=== PATIENT | male | born 1960 | race Caucasian/White ===

== ENCOUNTER 2024-12-07 13:00 | Inpatient (IN) ==
[2024-12-07] MEDS ORDERED: PROVENTIL NEB TX 0.083% 2.5MG/ 3ML ONE (13:08)
[2024-12-07 13:12] LABS: ABG BASE EXCESS 2.4 mmol/L (-2.0-2.0); ABG HCO3 27.2 mmol/L (22-26); ABG OXYGEN SATURATION 95.0 % (90-100); ABG PCO2 42.0 mmHg (35.0-45.0); ABG PH 7.420 (7.35-7.45); ABG PO2 73.0 mmHg (80.0-100.0)
[2024-12-07 13:15] LABS: MEAN PLATELET VOLUME 6.7 fL (7.4-11.0); RED CELL DISTRIBUTION WIDTH 14.0 % (11.6-16.5)
--- NOTE | 2024-12-07 13:20 | EKG ---
Test Reason : short of breath Blood Pressure : */* mmHG Vent. Rate : 89 BPM Atrial Rate : 89 BPM P-R Int : 156 ms QRS Dur : 128 ms QT Int : 380 ms P-R-T Axes : 100 48 5 degrees QTc Int : 462 ms Normal sinus rhythm Right bundle branch block Inferior infarct , age undetermined Abnormal ECG No previous ECGs available Confirmed by Brandon Rudolph MD ([id number]) on 12/08/2024 5:01:11 AM Referred By: Confirmed By: Brandon Rudolph MD
[2024-12-07] MEDS: DUONEB 0.5 MG/3 MG (3 mL) NEB ONE (13:27)
[2024-12-07 13:29] LABS: COR CA(FOR HYPOALB) 9.9 mg/dL (8.5-10.1); COR NA(FOR HYPERGLY) 133 mmol/L (136-145); CREATININE 0.95 mg/dL (0.70-1.30); eGFR NON BLACK RACES > 60 (>60)
--- NOTE | 2024-12-07 13:42 | RAD ---
EXAMINATION: CHEST, 1 VIEW HISTORY: short of breath; . COMPARISON STUDY: None. TECHNIQUE: Two views FINDINGS: Films are underpenetrated. Cardiomegaly. Perihilar infiltrates may represent CHF. No pneumothorax. Hilar and mediastinal structures are unremarkable. Tortuous aorta. EKG leads and oxygen tubing project over the chest. IMPRESSION: Perihilar infiltrates which may represent CHF. Follow-up recommended. THIS IS AN ELECTRONICALLY VERIFIED FINAL REPORT 12/07/2024 1:39 PM - Electronically signed by Joce Chan MD
--- NOTE | 2024-12-07 14:28 | DR.SOBA ---
HPI Time Seen Time Seen by Provider: 12/07/24 13:16 Primary Care Physician Primary Care Physician: Hai HPI Comment HPI Comment: Patient with history of CHF, COPD and recently diagnosed pneumonia as an outpatient was prescribed a Z-Sami and before he took his first dose this morning the found him lethargic and hypotensive. On arrival his oxygen saturation was at 88% but improved quickly thereafter. Patient had 2-3+ pitting edema bilateral lower extremities. Denies fever. Complaints Chief Complaint:: Patient wheeled into the Trauma room with the CC of Shortness of Breath, and Cough that started on last wednesday12/01/24. Patients stated that the patient fell four times over the last week and hurt both of his knees. On arrival the patient was on June Mask @3Lpm and the patient O2 was noted to be 88%. Patient is noted to have 3+ pitting edema to the bilateral lower extrimities. Self Treatment fo Chief Complaint: N/A COVID-19 Coronavirus risk:travel/contact w/high risk person: No Has patient experienced Coronavirus symptoms: Yes Coronavirus symptoms experienced: Coughing and Shortness of Breath Source History Provided: Patient and Significant Other Mode of Arrival Mode of Arrival: Wheelchair Timing Onset of Chief Complaint: 12/01/24 PMH PMH Past Medical History: Yes Past Medical History: Anxiety, CHF, COPD, Diabetes, Dyslipidemia, Hypertension and Cancer Past Surgical History: Yes Surgical History: Ortho Surgery Past Surgical History Comment: Eye Sx, Left Arm ortho sx, Right shoulder. Family History History of Family Medical Conditions: Yes Family Medical History: Diabetes Mellitus and Hypertension Social History Does any household member use tobacco: Yes Alcohol Use: None Do you use any recreational Drugs:: No Lives With: Spouse Lives Where: Home Travel Risk Coronavirus risk:travel/contact w/high risk person: No Has patient experienced Coronavirus symptoms: Yes Coronavirus symptoms experienced: Coughing and Shortness of Breath Infectious screening In the last 2 months have you had wt loss of >10#?: NO Have you had fever, night sweats or hemotysis?: No Have you traveled outside the country in the last 6 months?: No Isolation: Standard ROS Review of Systems Constitutional: No Symptoms Reported and Fatigue; negative Fever Eyes: No Symptoms Reported ENTM: No Symptoms Reported Respiratoy: See HPI, Short of Breath and Wheezing Cardiovascular: See HPI and Edema (At baseline); negative Chest Pain, Palpitations or Syncope Gastrointestinal/Abdominal: No Symptoms Reported Genitourinary: No Symptoms Reported Neurological: No Symptoms Reported; negative Headache, Numbness, Paresthesia, Seizure, Tingling, Weakness, Dizziness or Speech Problem Musculoskeletal: No Symptoms Reported Integumentary: No Symptoms Reported Hematologic/Lymphatic: No Symptoms Reported Endocrine: No Symptoms Reported Psychiatric: No Symptoms Reported All Other Systems: Reviewed and Negative PE Vital Signs Vitals: Vital Signs Temperature 98.8 F Pulse Rate 85 Pulse Rate 90 Respiratory Rate 26 Blood Pressure 105/62 O2 Sat by Pulse Oximetry 95 O2 Sat by Pulse Oximetry 88 General Limitations: No Limitations General Appearance: Alert, In No Apparent Distress and Lethargic Head Head Exam: Normal Inspection, Atraumatic and Normocephalic Eyes Eye exam: Normal Appearance ENT ENT Exam: Normal Exam Neck Neck Exam: Normal Inspection Chest Chest Inspection: Normal Inspection Respiratory Respiratory Exam: Other (Diminish on right middle and lower lung. Wheezing bilaterally) Cardiovascular Cardiovascular Exam: Regular Rate and Normal Rhythm Abdominal Exam Abdominal Exam: Normal Inspection, Normal Bowel Sounds and Soft Extremities Extremities Exam: Normal Inspection Back Back Exam: Normal Inspection Neurologic Neurological Exam: Alert and Oriented X3 Psychiatric Psychiatric Exam: Normal Affect and Normal Mood Skin Skin Exam: Warm, Dry, Intact and Normal Color COURSE Treatment Treatment: Discussed results of workup with patient and family. Patient improved significantly during stay in ER but still feeling a little fatigue and winded. Consultation Called: 15:13 Consultation Comments: Discussed case with Dr. Harris and he is agreeable to admission ROR Labs Reviewed Laboratory Results Reviewed?: Yes 12/07/24 13:06 12/07/24 13:06 Laboratory: WBC 17.6 X10^3/uL (3.6-10.0) H 12/07/24 13:06 RBC 4.19 X10^6/uL (4.7-6.0) L 12/07/24 13:06 Hgb 12.3 g/dL (13.5-18.0) L 12/07/24 13:06 Hct 36.8 % (42.0-54.0) L 12/07/24 13:06 MCV 88.0 fL (80.0-100.0) 12/07/24 13:06 MCH 29.5 pg (27.0-34.0) 12/07/24 13:06 MCHC 33.5 g/dL (33.0-35.0) 12/07/24 13:06 RDW 14.0 % (11.6-16.5) 12/07/24 13:06 Plt Count 508 X10^3/uL (150.0-450.0) H 12/07/24 13:06 MPV 6.7 fL (7.4-11.0) L 12/07/24 13:06 Neut % (Auto) 75.1 % (42.0-75.0) H 12/07/24 13:06 Lymph % (Auto) 13.5 % (21.0-51.0) L 12/07/24 13:06 Craig % (Auto) 8.8 % (0.0-13.0) 12/07/24 13:06 Eos % (Auto) 2.1 % (0.9-2.9) 12/07/24 13:06 Baso % (Auto) 0.5 % (0.2-1.0) 12/07/24 13:06 Neut # (Auto) 13.2 x10^3/uL (2.2-4.8) H 12/07/24 13:06 Lymph # (Auto) 2.4 X10^3/uL (1.3-2.9) 12/07/24 13:06 [place] # (Auto) 1.6 x10^3/uL (0.3-0.8) H 12/07/24 13:06 Eos # (Auto) 0.4 x10^3/uL (0.0-0.2) H 12/07/24 13:06 Baso # (Auto) 0.1 X10^3/uL (0.0-0.1) 12/07/24 13:06 Absolute Nucleated RBC 0.0 /100WBC 12/07/24 13:06 Sample Site Lbra 12/07/24 13:11 ABG pH 7.420 (7.35-7.45) 12/07/24 13:11 ABG pCO2 42.0 mmHg (35.0-45.0) 12/07/24 13:11 ABG pO2 73.0 mmHg (80.0-100.0) L 12/07/24 13:11 ABG HCO3 27.2 mmol/L (22-26) H 12/07/24 13:11 ABG O2 Saturation 95.0 % (90-100) 12/07/24 13:11 ABG Base Excess 2.4 mmol/L (-2.0-2.0) H 12/07/24 13:11 Pavel Test N/a 12/07/24 13:11 A-a Gradient 160.0 mmHg 12/07/24 13:11 FiO2 40.0 12/07/24 13:11 Blood Gas Comments Vargas well ms/eb 12/07/24 13:11 Sodium 132 mmol/L (136-145) L 12/07/24 13:06 Corrected Sodium 133 mmol/L (136-145) L 12/07/24 13:06 Potassium 4.2 mmol/L (3.5-5.1) 12/07/24 13:06 Chloride 95 mmol/L (98-107) L 12/07/24 13:06 Carbon Dioxide 27.9 mmol/L (21-32) 12/07/24 13:06 BUN 13 mg/dL (7-18) 12/07/24 13:06 Creatinine 0.95 mg/dL (0.70-1.30) 12/07/24 13:06 Est GFR (MDRD) Af Amer > 60 (>60) 12/07/24 13:06 Est GFR (MDRD) Non-Af > 60 (>60) 12/07/24 13:06 Glucose 124 mg/dL (65-99) H 12/07/24 13:06 Lactic Acid 1.0 mmol/L (0.4-2.0) 12/07/24 13:32 Calcium 8.8 mg/dL (8.5-10.1) 12/07/24 13:06 Corrected Calcium 9.9 mg/dL (8.5-10.1) 12/07/24 13:06 Total Bilirubin 0.30 mg/dL (0.2-1.0) 12/07/24 13:06 AST 8 Units/L (15-37) L 12/07/24 13:06 ALT 13 Units/L (12-78) 12/07/24 13:06 Alkaline Phosphatase 54 Units/L (46-116) 12/07/24 13:06 Troponin I High Sens 4.4 ng/L (4.0-60.0) 12/07/24 13:06 B-Natriuretic Peptide 51.7 pg/mL (0-79) 12/07/24 13:06 Total Protein 7.9 g/dL (6.4-8.2) 12/07/24 13:06 Albumin 2.6 g/dL (3.4-5.0) L 12/07/24 13:06 Globulin 5.3 g/dL (2.5-4.5) H 12/07/24 13:06 Albumin/Globulin Ratio 0.5 Ratio (1.1-2.1) L 12/07/24 13:06 Other Results Comments: See CT results. XRAY X-ray Results: See radiology report for chest x-ray EKG Rate: 89 Sloan: Normal Rhythm: NSR Block: RBBB Hypertrophy: None ST: Normal Opioid Opioid Risk Tool Age (Immanuel box if 16-45): No History of Preadolescent Sexual Abuse: No Total: 0 Total Score Risk Category: Low Risk Copyright: Tellez predicting aberrant behaviors Discharge Plan Diagnosis Discharge Problem: Acute hypotension, Pneumonia, CHF (congestive heart failure), COPD (chronic obstructive pulmonary disease) Discharge Plan Patient Disposition: 09 ADMITTED INPATIENT Condition: Stable Prescriptions: No Action carvedilol 25 mg tablet 25 mg PO BID Patient Comments: [NO ORIGINAL SIG] alprazolam 1 mg tablet 1 mg PO TID Patient Comments: [NO ORIGINAL SIG] hydrocodone-acetaminophen 10-325 mg tablet 1 tab PO TID PRN Patient Comments: [NO ORIGINAL SIG] nifedipine 60 mg tablet extended release 24hr 60 mg PO BID Patient Comments: [NO ORIGINAL SIG] fluticasone propion-salmeterol [Advair HFA] 230-21 mcg/actuation HFA aerosol inhaler 1 puff INHALATION BID Patient Comments: [NO ORIGINAL SIG] brimonidine-timolol [Combigan] 0.2-0.5 % drops 1 drp OPHTHALMIC (EYE) Q12H Patient Comments: [NO ORIGINAL SIG] icosapent ethyl [Vascepa] 1 gram capsule 1 g PO BID Patient Comments: [NO ORIGINAL SIG] Entresto 49-51 mg tablet 1 tab PO BID Patient Comments: [NO ORIGINAL SIG] latanoprost 0.005 % drops 1 drp OPHTHALMIC (EYE) QPM Patient Comments: [NO ORIGINAL SIG] Rx Instructions: both eyes clonidine HCl 0.1 mg tablet 0.1 mg PO TID Patient Comments: [NO ORIGINAL SIG] metformin 850 mg Tablet 850 mg PO BID azithromycin 250 mg Tablet 250 mg PO QDAY Rx Instructions: start on day 2 of therapy cephalexin 500 mg Capsule 500 mg PO TID aspirin 81 mg Tablet 81 mg PO QDAY Health Concerns: Post Hospitalization: new medications and changes needed to prevent readmission or further decline. Pt educated and given instructions on all concerns. Plan of Treatment: Continue with present treatment and follow up plan. Pt is to keep follow up appointment as instructed and take medications as ordered. Orders to Discharge Patient Discharge Orders: Transfer (Routine); Ordered 12/07/24 Ordered By: Nii Patel Follow ups/Referrals Follow ups/Referrals: [facility],None [Primary Care Provider] - 3 days Instructions Stand Alone Forms: Find Help Web Site, Post Hospital Follow Up Care Print Language: ESTONIAN
--- NOTE | 2024-12-07 14:54 | CT ---
EXAMINATION: CHEST W/O CON HISTORY: SOB; . COMPARISON: Chest x-ray 12/07/2024 TECHNIQUE: Routine axial imaging of the chest was performed. Lack of IV contrast limits diagnostic sensitivity. The above CT scan was done with automated exposure control and the mA and kV was adjusted to obtain quality images according to patient size. FINDINGS: Lungs: Elevated left hemidiaphragm. Dense alveolar opacity with air bronchograms in the left lower lobe and lingula likely representing pneumonia. Alveolar infiltrate medially in the right lower lobe suggesting pneumonia. Bronchial thickening is noted. Minimal central bronchiectasis. No ground-glass opacities, suspicious pulmonary nodules Central Airways: No obstructing endobronchial lesions Pleura: No pleural effusion or pneumothorax Thoracic Aorta: Ectasia. Atherosclerotic calcification. Main Pulmonary Trunk: Normal diameter Lymph Nodes: No pathologic hilar, axillary or mediastinal adenopathy Heart/Pericardium: Cardiomegaly. No significant pericardial effusion. Three-vessel coronary artery disease Liver: No acute findings. Cyst in the left lobe of the liver. GB/Biliary: Distended gallbladder. No gallstones or dilated ducts. No wall thickening Spleen: Normal size and density Pancreas: No acute findings as visualized Adrenal Glands: No mass Kidneys no hydronephrosis. Abdominal Aorta: Tapers normally. Atherosclerotic calcification Retroperitoneum: No pathologically enlarged lymph nodes Bowel/Peritoneal Cavity: No acute findings as visualized Osseous Structures: Degenerative changes in the thoracolumbar spine. No acute findings. Other: None IMPRESSION: Dense alveolar infiltrate in the left lower lobe and lingula with air bronchograms. Alveolar infiltrate medially in the right lower lobe. Findings suggest pneumonia. Follow-up to resolution recommended. Central bronchiectasis with bronchial thickening. Distended gallbladder. No gallstones wall thickening or dilated duct The above CT scan was done with automated exposure control and the mA and kV was adjusted to obtain quality images according to patient size THIS IS AN ELECTRONICALLY VERIFIED FINAL REPORT 12/07/2024 2:51 PM - Electronically signed by Joce Chan MD
[2024-12-07] MEDS ORDERED: ULTRAM PO PRN (15:42)
[2024-12-07] MEDS ORDERED: TYLENOL 325 MG TAB PO PRN (15:42)
[2024-12-07] MEDS ORDERED: NovoLIN R (or HumuLIN R) SUBCUT PRN (15:42)
[2024-12-07] MEDS ORDERED: CONSULT PHARMACY - POTASSIUM & MAGNESIUM XX SCH (16:00)
[2024-12-07] MEDS: COMBIGAN EYE DROPS OP SCH ×2 (16:14→22:00)
[2024-12-07 16:36] VITALS: BMI 30.9
[2024-12-07 17:52] LABS: BLOOD/HEMOGLOBIN,URINE NEGATIVE (NEGATIVE); LEUKOCYTE ESTERASE ,URINE NEGATIVE (NEGATIVE); NITRITES,URINE NEGATIVE (NEGATIVE)
[2024-12-07 17:53] LABS: APPEARANCE,URINE CLEAR (CLEAR); SQUAMOUS EPITHELIAL CELL,UR RARE /HPF (NEGATIVE)
[2024-12-07] MEDS ORDERED: PHARMACY CONSULT XX SCH (18:00)
[2024-12-07] MEDS ORDERED: PULMICORT NEB TX 0.5 MG NEB ONE (19:59)
[2024-12-07] MEDS ORDERED: DUONEB 0.5 MG/3 MG (3 mL) NEB ONE (19:59)
[2024-12-07] MEDS: PULMICORT NEB TX 0.5 MG NEB SCH (20:09)
[2024-12-07] MEDS: DUONEB 0.5 MG/3 MG (3 mL) NEB SCH (20:09)
[2024-12-07] MEDS: SNACK - Diabetic Appropriate PO SCH (20:35)
[2024-12-07] MEDS: LOVENOX INJ 40 MG SYR SC SCH (20:36)
[2024-12-07] MEDS: VIBRAMYCIN 100 MG in D5W 250 ML IV 250 ML IV SCH (20:36)
[2024-12-07] MEDS: NS 250 ML IV 250 ML IV PRN (20:36)
[2024-12-07] MEDS: NORCO 5/325 MG TAB PO PRN (20:37)
[2024-12-07] MEDS: XALATAN OP SCH (20:40)
[2024-12-07] MEDS ORDERED: [UNRECOGNIZED DRUG - OTHER] IN SCH (21:00)
[2024-12-07] MEDS: ALPRAZOLAM ODT PO PRN (22:09)
[2024-12-08 06:18] LABS: MEAN PLATELET VOLUME 6.9 fL (7.4-11.0); RED CELL DISTRIBUTION WIDTH 14.1 % (11.6-16.5)
[2024-12-08 06:36] LABS: COR CA(FOR HYPOALB) 10.2 mg/dL (8.5-10.1); CREATININE 0.83 mg/dL (0.70-1.30); eGFR NON BLACK RACES > 60 (>60)
--- NOTE | 2024-12-08 08:02 | RAD ---
EXAMINATION: CHEST, 1 VIEW HISTORY: SOB ; CHF, COPD, DM, HTN SX: ORTHO, EYE SX . COMPARISON STUDY: Chest x-ray 12/07/2024. CT chest 12/07/2024 TECHNIQUE: One view FINDINGS: Cardiomegaly is present. Minimal decrease in bibasilar infiltrates. Follow-up recommended. No pneumothorax, new infiltrate or other change noted. EKG leads are present. IMPRESSION: Minimal decrease in bilateral lower lobe infiltrates. Follow-up recommended THIS IS AN ELECTRONICALLY VERIFIED FINAL REPORT 12/08/2024 7:59 AM - Electronically signed by Joce Chan MD
[2024-12-08] MEDS: ASPIRIN EC 81 MG PO SCH (09:25)
[2024-12-08] MEDS: DECADRON INJ IVP SCH (09:25)
[2024-12-08] MEDS: NICOTINE PATCH TD SCH (09:26)
[2024-12-08] MEDS: CHECK PATCH XX SCH (09:26)
--- NOTE | 2024-12-08 10:10 | DR.H&P ---
H&P History & Physical for Day of: H&P Date: 12/08/24 Chief Complaint Chief Complaint: Weakness History of Present Illness History of Present Illness: Patient brought from home to the ER due to worsening shortness of breath and weakness. Found to have a left lower lobe pneumonia and meeting sepsis criteria. He is chronically on 2 L O2 at home but had to bump it up to 3-4 L. He is feeling better this morning compared to the prior days. Still with a productive cough, fatigue, and soft blood pressure. Heart rate still slightly elevated and O2 variable on 3L. Daughter at bedside. ROS: 12 point ROS otherwise negative. PE: Well-developed, obese male in no acute distress. Sitting at the bedside chair. Currently eating breakfast. Hearing intact conversation, head NCAT, EOMI. Heart regular rate and rhythm. Belly is soft nontender with bowel sounds present, it is protuberant. Lung sounds are diminished but clear except in the left lower lobe. There are crackles and hollow areas. Mood and affect are appropriate. No edema of his extremities at this time. Past Medical History Past Medical History: Anxiety, CHF, COPD, Diabetes, Dyslipidemia, Hypertension and Cancer Past Surgical History Surgical History: Ortho Surgery Family History Family Medical History: Diabetes Mellitus, [place], Coronary Artery Disease and Hypertension Social History Does patient currently use any type of tobacco product: Yes Type of Tobacco Use: Cigarettes Does any household member use tobacco: No Alcohol Use: None Drug Use: None Medications Home Medications: Home Medications Medication Instructions Recorded Confirmed Type alprazolam 1 mg tablet 1 mg PO TID 12/07/24 5 History aspirin 81 mg tablet 81 mg PO QDAY 12/07/2412/07 History azithromycin 250 mg tablet 250 mg PO QDAY 12/07/24 History brimonidine 0.2 %-timolol 0.5 % 1 drp ophthalmic (eye) Q12H 12/07/24 12/07/24 History eye drops (Combigan) carvedilol 25 mg tablet 25 mg PO BID 12/07/24 History cephalexin 500 mg capsule 500 mg PO TID 12/07/2412/07 History clonidine HCl 0.1 mg tablet 0.1 mg PO TID 12/07/24 History fluticasone propionate 230 1 puff inhalation BID 12/0712/07/24 History mcg-salmeterol 21 mcg/actuation HFA inhaler (Advair HFA) hydrocodone 10 mg-acetaminophen 1 tab PO TID PRN 12/0712/07/24 History 325 mg tablet icosapent ethyl 1 gram capsule 1 g PO BID 12/07/24 History (Vascepa) latanoprost 0.005 % eye drops 1 drp ophthalmic (eye) Q PM 12/07/24 12/07/24 History metformin 850 mg tablet 850 mg PO BID 12/07/2412/07 History nifedipine 60 mg tablet,extended 60 mg PO BID 12/07/24 12/07/24 History release 24 hr sacubitril 49 mg-valsartan 51 mg 1 tab PO BID 12/07/24 12/07/24 History tablet (Entresto) Allergies Allergies Allergy/AdvReac Type Severity Reaction Status Date / Time clindamycin AdvReac Mild Verified 12/07/24 13:12 Labs 12/08/24 05:13 12/08/24 05:13 Labs: Laboratory WBC 15.6 X10^3/uL (3.6-10.0) H 12/08/24 05:13 RBC 3.89 X10^6/uL (4.7-6.0) L 12/08/24 05:13 Hgb 11.5 g/dL (13.5-18.0) L 12/08/24 05:13 Hct 34.2 % (42.0-54.0) L 12/08/24 05:13 MCV 87.9 fL (80.0-100.0) 12/08/24 05:13 MCH 29.7 pg (27.0-34.0) 12/08/24 05:13 MCHC 33.8 g/dL (33.0-35.0) 12/08/24 05:13 RDW 14.1 % (11.6-16.5) 12/08/24 05:13 Plt Count 495 X10^3/uL (150.0-450.0) H 12/08/24 05:13 MPV 6.9 fL (7.4-11.0) L 12/08/24 05:13 Neut % (Auto) 76.5 % (42.0-75.0) H 12/08/24 05:13 Lymph % (Auto) 12.2 % (21.0-51.0) L 12/08/24 05:13 [place] % (Auto) 8.5 % (0.0-13.0) 12/08/24 05:13 Eos % (Auto) 2.3 % (0.9-2.9) 12/08/24 05:13 Baso % (Auto) 0.5 % (0.2-1.0) 12/08/24 05:13 Neut # (Auto) 11.9 x10^3/uL (2.2-4.8) H 12/08/24 05:13 Lymph # (Auto) 1.9 X10^3/uL (1.3-2.9) 12/08/24 05:13 [place] # (Auto) 1.3 x10^3/uL (0.3-0.8) H 12/08/24 05:13 Eos # (Auto) 0.4 x10^3/uL (0.0-0.2) H 12/08/24 05:13 Baso # (Auto) 0.1 X10^3/uL (0.0-0.1) 12/08/24 05:13 Absolute Nucleated RBC 0.1 /100WBC 12/08/24 05:13 Sample Site Lbra 12/07/24 13:11 ABG pH 7.420 (7.35-7.45) 12/07/24 13:11 ABG pCO2 42.0 mmHg (35.0-45.0) 12/07/24 13:11 ABG pO2 73.0 mmHg (80.0-100.0) L 12/07/24 13:11 ABG HCO3 27.2 mmol/L (22-26) H 12/07/24 13:11 ABG O2 Saturation 95.0 % (90-100) 12/07/24 13:11 ABG Base Excess 2.4 mmol/L (-2.0-2.0) H 12/07/24 13:11 Pavel Test N/a 12/07/24 13:11 A-a Gradient 160.0 mmHg 12/07/24 13:11 FiO2 40.0 12/07/24 13:11 Blood Gas Comments Vargas well ms/eb 12/07/24 13:11 Sodium 135 mmol/L (136-145) L 12/08/24 05:13 Corrected Sodium TNP 12/08/24 05:13 Potassium 4.2 mmol/L (3.5-5.1) 12/08/24 05:13 Chloride 97 mmol/L (98-107) L 12/08/24 05:13 Carbon Dioxide 29.9 mmol/L (21-32) 12/08/24 05:13 BUN 12 mg/dL (7-18) 12/08/24 05:13 Creatinine 0.83 mg/dL (0.70-1.30) 12/08/24 05:13 Est GFR (MDRD) Af Amer > 60 (>60) 12/08/24 05:13 Est GFR (MDRD) Non-Af > 60 (>60) 12/08/24 05:13 Glucose 87 mg/dL (65-99) 12/08/24 05:13 POC Glucose (mg/dL) 91 mg/dL (65-99) 12/08/24 05:12 Lactic Acid 1.0 mmol/L (0.4-2.0) 12/07/24 13:32 Calcium 8.8 mg/dL (8.5-10.1) 12/08/24 05:13 Corrected Calcium 10.2 mg/dL (8.5-10.1) H 12/08/24 05:13 Total Bilirubin 0.30 mg/dL (0.2-1.0) 12/08/24 05:13 AST 10 Units/L (15-37) L 12/08/24 05:13 ALT 14 Units/L (12-78) 12/08/24 05:13 Alkaline Phosphatase 49 Units/L (46-116) 12/08/24 05:13 Troponin I High Sens 4.4 ng/L (4.0-60.0) 12/07/24 13:06 B-Natriuretic Peptide 51.7 pg/mL (0-79) 12/07/24 13:06 Total Protein 7.3 g/dL (6.4-8.2) 12/08/24 05:13 Albumin 2.3 g/dL (3.4-5.0) L 12/08/24 05:13 Globulin 5.0 g/dL (2.5-4.5) H 12/08/24 05:13 Albumin/Globulin Ratio 0.5 Ratio (1.1-2.1) L 12/08/24 05:13 Specimen Type Random urine 12/07/24 17:15 Urine Color Yellow (YELLOW) 12/07/24 17:15 Urine Appearance Clear (CLEAR) 12/07/24 17:15 Urine pH 6.5 (5.0 - 8.0) 12/07/24 17:15 Ur Specific [place] 1.010 (1.000-1.030) 12/07/24 17:15 Urine Protein 1+ (NEGATIVE) 12/07/24 17:15 Urine Glucose (UA) Negative (NEGATIVE) 12/07/24 17:15 Urine Ketones Negative (NEGATIVE) 12/07/24 17:15 Urine Blood Negative (NEGATIVE) 12/07/24 17:15 Urine Nitrite Negative (NEGATIVE) 12/07/24 17:15 Urine Bilirubin Negative (NEGATIVE) 12/07/24 17:15 Urine Urobilinogen Normal (NORMAL) 12/07/24 17:15 Ur Leukocyte Esterase Negative (NEGATIVE) 12/07/24 17:15 Urine RBC None seen /HPF (0-3) 12/07/24 17:15 Urine WBC None seen /HPF (0-5) 12/07/24 17:15 Ur Squamous Epith Cells Rare /HPF (NEGATIVE) 12/07/24 17:15 Urine Bacteria Negative /HPF (NEGATIVE) 12/07/24 17:15 Ur Culture Indicated? No/not indicated 12/07/24 17:15 Physical Exam Vital Signs: Vital Signs Temperature 99.0 F Temperature 98.8 F Pulse Rate [Left Radial] 106 Pulse Rate [Left Radial] 104 Respiratory Rate 17 Respiratory Rate 18 Respiratory Rate 19 Respiratory Rate 19 Blood Pressure [Left Arm] 120/66 Blood Pressure [Left Arm] 113/66 O2 Sat by Pulse Oximetry 91 O2 Sat by Pulse Oximetry 93 Assessment/Plan (1) Severe sepsis: Narrative Support Text: Tachycardia, leukocytosis, pneumonia, acute on chronic hypoxemic respiratory failure. Lactic acid normal. IV doxycycline, IV fluids gently due to CHF, Decadron IV 6 mg starting today, DuoNebs, O2 supplementation, monitor labs and vitals closely. Status: Acute (2) Left lower lobe pneumonia: Qualifiers: Pneumonia type: due to unspecified organism Qualified Code(s): J18.9 - Pneumonia, unspecified organism Status: Acute (3) COPD exacerbation: Status: Acute (4) Acute on chronic hypoxic respiratory failure: Status: Acute (5) Acute hypotension: Status: Acute (6) CHF (congestive heart failure): Qualifiers: Heart failure type: systolic Heart failure chronicity: chronic Q ualified Code(s): I50.22 - Chronic systolic (congestive) heart failure Status: Acute
[2024-12-08] MEDS: ENTRESTO 49/51 MG TABLET PO SCH (10:55)
[2024-12-09 06:55] LABS: MEAN PLATELET VOLUME 6.9 fL (7.4-11.0); RED CELL DISTRIBUTION WIDTH 13.7 % (11.6-16.5)
[2024-12-09 07:07] LABS: COR CA(FOR HYPOALB) 10.5 mg/dL (8.5-10.1); CREATININE 0.84 mg/dL (0.70-1.30); eGFR NON BLACK RACES > 60 (>60)
[2024-12-09 09:58] VITALS: TEMP 97.4
[2024-12-09] MEDS: DECADRON INJ IVP SCH (09:59)
[2024-12-09 13:02] VITALS: BP 154/81; PULSE 98; RESP 20; O2SAT 97
[2024-12-09] MEDS ORDERED: LEVAQUIN TAB 500 MG ONE (13:54)
[2024-12-09] MEDS ORDERED: VIBRAMYCIN PO ONE (13:55)
== END 2024-12-09 14:05 | disposition home or self-care (01) | DRG 193 ==
LOC: ER 13:00 → MED/SURG 15:08
PROVIDERS: ADMIT Family Medicine; ATTEND Family Medicine
DX: J44.1 Chronic obstructive pulmonary disease with (acute) exacerbation; R94.31 Abnormal electrocardiogram [ECG] [EKG]; Z72.0 Tobacco use; R53.1 Weakness; J96.21 Acute and chronic respiratory failure with hypoxia; J18.8 Other pneumonia, unspecified organism; E87.1 Hypo-osmolality and hyponatremia; E11.65 Type 2 diabetes mellitus with hyperglycemia; Z91.81 History of falling; Z59.86 Financial insecurity; R26.89 Other abnormalities of gait and mobility; F41.8 Other specified anxiety disorders; I95.89 Other hypotension; I50.22 Chronic systolic (congestive) heart failure; I45.19 Other right bundle-branch block